=== PATIENT | male | born 1980 | race Caucasian/White ===

== ENCOUNTER 2022-06-28 16:16 | Outpatient (CLI) | payer OTHER, SELFPAY | END 2022-06-28 16:17 | disposition home or self-care (01) | LOC: CHSLAB 16:27 | PROVIDERS: PCP Specialist; Visit Provider Specialist | DX: D23.5 Other benign neoplasm of skin of trunk (principal) | CPT/HCPCS: 88305 ==

== ENCOUNTER 2023-04-17 08:09 | Outpatient (CLI) | payer OTHER, SELFPAY ==
--- NOTE | ~2023-04-17 | XR_ITS ---
XR foot LT min 3V 04/17/2023 08:23 INDICATION: Left foot pain. Plantar fasciitis. PROCEDURE: 3 views left foot COMPARISON: No prior studies for comparison. FINDINGS: Fracture, dislocation or subluxation is not identified. There is a small degenerative calca charly enthesophyte. Lisfranc joint intact. The soft tissues appear within normal limits. No foreign b odies are identified. IMPRESSION: 1: NO ACUTE BONE OR JOINT ABNORMALITY IDENTIFIED. Reviewed, dictated and finalized at location B. [facility]
== END 2023-04-17 08:10 | disposition home or self-care (01) ==
LOC: CHSIMG 08:12
PROVIDERS: PCP Internal Medicine; Visit Provider Orthopaedic Surgery
DX: M79.672 Pain in left foot (principal)
CPT/HCPCS: 73630